=== PATIENT | female | born 1970 | race Caucasian/White ===

== ENCOUNTER 2023-10-30 15:35 | Emergency (ER) | payer OTHER, SELFPAY ==
[2023-10-30 15:36] VITALS: BP 119/95; PULSE 82; RESP 15; TEMP 36.4; O2SAT 98; BMI 25.7
--- NOTE | 2023-10-30 15:43 | EDS_ITS ---
HPI <SHARON Sood - Last Filed: 10/30/23 17:02> History of Present Illness Chief Complaint: Laceration Narrative Narrative: Patient presenting today with a laceration to her right lower extremity that she got this afternoon. She reports that she was moving a bedside table when one of the drawers came out and a piece of metal on the door cut her leg. She is not on any blood thinners. Tetanus is not up-to-date. PFSH <SHARON Sood - Last Filed: 10/30/23 17:02> PFSH Medical History no medical history Allergy/AdvReac Type Severity Reaction Status Date / Time No Known Allergies Allergy Verified 10/30/23 15:36 Surgical History no surgical history Social History Smoking Status: Never smoker ROS <SHARON Sood - Last Filed: 10/30/23 17:02> ROS ED Constitutional Constitutional ED: Denies chills or fever(s) Musculoskeletal Musculoskeletal: Denies arthralgias Integumentary Reports laceration Neurologic Neurologic: Denies paresthesias EXAM <SHARON Sood - Last Filed: 10/30/23 17:02> Physical Exam Const Vital Signs: 10/30/23 15:36 Temperature 97.6 F L Temperature Source Temporal Pulse Rate 82 Respiratory Rate 15 Blood Pressure 119/95 H Blood Pressure Mean 103 Pulse Ox 98 Oxygen Delivery Method Room Air Positive well nourished, well developed and no apparent distress General Appearance ED: well developed HEENT Reports normocephalic and head/scalp atraumatic Mouth ED: Yes moist mucous membranes normal Eyes PERRL and EOMs intact bilaterally Neck full ROM and supple Chest Wall inspection of chest normal Resp normal respiratory effort and clear to auscultation bilaterally Cardio regular rate and regular rhythm Back/Spine normal ROM and normal to inspection Extremity full ROM General Extremety ED: Negative for weight-bearing difficulty General Extremity: Negative for weight-bearing difficulty Neuro oriented x3, CN's II-XII intact bilaterally, moves all extremities, no focal motor deficits and no sensory deficits noted Sensorium / Orientation: awake and alert Psych mental status grossly normal and thought process normal Skin Skin Narrative: 5 cm linear full-thickness laceration to the right anterior hendrickson. <Dr. Cornelio Mcdonald MD - Last Filed: 10/30/23 22:28> Physical Exam Const Vital Signs: 10/30/23 15:36 Temperature 97.6 F L Temperature Source Temporal Pulse Rate 82 Respiratory Rate 15 Blood Pressure 119/95 H Blood Pressure Mean 103 Pulse Ox 98 Oxygen Delivery Method Room Air [facility] <SHARON Sood - Last Filed: 10/30/23 17:02> [facility] Narrative Medical decision making narrative: Patient presenting with a 5 cm full-thickness linear laceration to her right anterior hendrickson that she sustained this afternoon. Tetanus updated. Wound will require suture repair. This was copiously irrigated with saline and cleaned with chlorhexidine. Wound was anesthetized with lidocaine with epinephrine. Sutures placed, patient tolerated procedure well, wound bandaged with bacitracin ointment. Wound care instructions were discussed. Patient is to have sutures removed in 10 days. Patient discharged home in stable condition. <Dr. Cornelio Mcdonald MD - Last Filed: 10/30/23 22:28> [facility] Treatment and Re-Evaluation Narrative: I have personally performed a face to face assessment of the patient and have reviewed the JEWEL Note. I performed a substantive portion of the visit including all aspects of the following. My hoffman findings include: History is moving furniture and a drawer accidentally came open and hit her in the right lower leg sustained a laceration Exam is 5 cm full-thickness laceration vertical to the right lower leg, subcutaneous fat showing does not appear contaminated no other structures visible. Neurovascular intact distally. Medical Decison Making I supervised the PA performing laceration repair with horizontal mattress sutures. We discussed care and follow-up. Other additions or changes: [None] Procedures <SHARON Sood - Last Filed: 10/30/23 17:02> Lacerations laceration: Length: 5 cm Depth: Sub Q Shape: Linear Prep: Chlorhexadine Laceration repair: Irrigated, Lidocaine with epi, Skin sutures and Wound explored Number of Sutures/Mega: 7 Suture Information: Ethilon, Horizontal, Mattress and 5-0 Discharge Plan Triage Chief Complaint: Laceration ED Midlevel Provider: Lilliana Ling ED Provider: Cornelio Mcdonald Dx/Rx/DC Orders Clinical Impression: Laceration of leg Instructions: ED Laceration Extremity Primary Care Provider: Ramiro Frost Referrals: Ramiro Frost MD [Primary Care Provider] - 10 Day for suture removal Activity Restrictions/Additional Instructions: Please return or follow-up with your PCP for any signs of infection. Have sutures removed in 10 days. Print Language: Setswana Disposition Disposition: Home, Self Care Discharge Date/Time: 10/30/23 17:08
[2023-10-30] MEDS: Diphth,Pertuss(Acell),Tet Vac 0.5 ML Vial IM (15:57)
== END 2023-10-30 17:08 | disposition home or self-care (01) ==
PROVIDERS: Emergency Provider Emergency Medicine; PCP Family Medicine; Visit Provider Emergency Medicine
DX: S81.811A Laceration without foreign body, right lower leg, initial encounter (principal); W26.8XXA Contact with other sharp object(s), not elsewhere classified, initial encounter; Z23 Encounter for immunization
CPT/HCPCS: 12002; 90471; 90715; 99282